=== PATIENT | female | born 1940 | race Two or more races ===

== ENCOUNTER 2018-10-04 09:13 | Day surgery (SDC) | payer OTHER ==
[2018-10-01 17:24] VITALS: BMI 26.5
[2018-10-04] VITALS (11 sets, daily range): BP systolic 106–169; BP diastolic 53–95; PULSE 73–122; RESP 10–24; Ht 144.8 cm; Wt 61.8 kg
[~2018-10-04] VITALS: Ht 144.8 cm; Wt 61.8 kg
[~2018-10-04 09:13] MED LIST: CEFAZOLIN 2 GM/50 ML (PMX) 50 ML IVPB ONE; SOD CHLORIDE 0.9% 1,000 ML IV SCH
[2018-10-04] MEDS ORDERED: SOD CHLORIDE 0.9% 1,000 ML IV ONE (10:00)
[2018-10-04] MEDS ORDERED: CEFAZOLIN 2 GM/50 ML (PMX) 50 ML IVPB ONE (10:00)
--- NOTE | 2018-10-04 10:30 | PREAC ---
Date/Time of Note Date/Time of Note DATE: 10/04/18 TIME: 10:29 Anesthesia Eval and Record Evaluation Time Pre-Procedure Interview DATE: 10/04/18 TIME: 10:29 Age 77 Sex female NPO: 8 hrs Preoperative diagnosis cholelithiasis Planned procedure laparoscopic cholecystectomy Past Medical History Past Medical History: Includes Cardio: Dyslipidemia Musculoskeletal: Osteoarthritis Surgery & Anesthesia Issues No known issue Meds Anticoagulation: No Beta Katharina within 24 hr: No Reason Beta Katharina not given: Pt. not on B-Katharina No Active Prescriptions or Reported Meds Current Medications Sodium Chloride 1,000 ml @ 75 mls/hr [id number] ONCE IV Last administered on 10/04/18at 10:11; Admin Dose 75 MLS/HR; Start 10/04/18 at 10:00; Stop 10/04/18 at 23:19 Meds reviewed: Yes Allergies Coded Allergies: No Known Drug Allergies (Unverified Allergy, Unknown, 10/04/18) Allergies Reviewed: Yes Labs/Studies Labs Reviewed: Reviewed by anesthesiologist test: N/A Pre-procedure Exam Last vitals Vital Signs Date Temp Pulse Resp B/P (MAP) Pulse Ox O2 O2 Flow FiO2 Time Delivery Rate 10/04/18 97.3 73 16 157/77 98 Room Air 10:04 (103) Airway: Adequate mouth opening, Adequate thyromental dist Mallampati: Mallampati I Teeth: Normal Lung: Normal Heart: Normal ASA Physical Status ASA physical status: 2 Emergency: None Planned Anesthetic General/MAC: ETT Planned Pain Management Parenteral pain med Pre-operative Attestations Prior to commencing anesthesia and surgery, the patient was re-evaluated, there was verification of: *The patient's identity *The results of appropriate recent lab work and preoperative vital signs *The above evaluation not changing prior to induction *Anesthetic plan, risk benefits, alternative and complications discussed with patient/family; questions answered; patient/family understands, accepts and wishes to proceed. TORSTEN KELLER Oct 04, 2018 10:30
[2018-10-04] MEDS ORDERED: BUPIVACAINE 0.25% (MPF) 30 ML INJ ONE (10:35)
[2018-10-04] MEDS ORDERED: ROCURONIUM 50 MG INJ ONE (10:38)
[2018-10-04] MEDS ORDERED: PROPOFOL 20 ML ONE (10:38)
[2018-10-04] MEDS ORDERED: LIDOCAINE 2% (SDV) 5 ML INJ ONE (10:39)
[2018-10-04] MEDS ORDERED: FENTAnyl 50 MCG/ML VIAL ONE (10:39)
[2018-10-04] MEDS ORDERED: CEFAZOLIN 1 GM INJ ONE (10:51)
[2018-10-04] MEDS ORDERED: ONDANSETRON 4 MG INJ ONE (10:52)
[2018-10-04] MEDS ORDERED: DEXAMETHASONE 4 MG/ML 5 ML INJ ONE (10:52)
[2018-10-04] MEDS ORDERED: ATROPINE 1 MG/10 ML SYRINGE ONE (11:17)
[2018-10-04] MEDS ORDERED: SUGAMMADEX SODIUM 200 MG/2 ML VIAL IV ONE (11:17)
--- NOTE | 2018-10-04 11:23 | OPR ---
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 She requests surgical excision of her gallbladder. Risks alternatives benefits and personally discussed the patient. Patient expressed understanding and consents to the operation. Procedure Description Patient is taken to the OR prepped and draped in usual sterile fashion. Surgical time was performed. IV antibiotics given. Infraumbilical transverse incision was made at the 15 blade. Dissection with cautery skin onto the fascia and the fascia was grasped with [place]'s and divided with curved Carreon scissors. Overdiuresis is placed into the fascia. Gray trochars were introduced. Pneumoperitoneum is established. Midepigastric 12 mm optical trochars placed under direct position. Right upper quadrant upper flank 5 mm optical trochars w ere placed under direct position. Upon initial inspection there are some adhesions of the gallbladder extending down bluntly. The gallbladder was grasped in the fundus retracted lateral cephalad direction. [place] graspers were used to dissect of the cystic duct and cystic artery. The critical view was established. The cystic duct is divided to close proximal to distal and the divisions performed laparoscopic scissors. The cystic artery was divided to close proximal completion of the divisions performed laparoscopic scissors. The gallbladder was taken of the gallbladder bed. Good hemostasis after the gallbladder is retrieved Endo Catch bag. All ports removed under direct position. Overdiuresis was tied down. Skin is closed and skin annika. Ther apeutic contains local anesthesia was injected at the incision site. Dry dressings were applied. Ivy TURK Oct 04, 2018 11:23
[2018-10-04] MEDS ORDERED: HYDROCODONE/APAP (5/325) TAB PO ONE (11:30)
--- NOTE | 2018-10-04 11:34 | PAC ---
Date/Time of Note Date/Time of Note DATE: 10/04/18 TIME: 11:34 Post-Anesthesia Notes Post-Anesthesia Note Last documented vital signs Vital Signs Date Temp Pulse Resp B/P (MAP) Pulse Ox O2 O2 Flow FiO2 Time Delivery Rate 10/04/18 97.3 73 16 157/77 98 Room Air 1134 (103) Activity: WNL Respiratory function: WNL Cardiovascular function: WNL Mental status: Baseline Pain reasonably controlled: Yes Hydration appropriate: Yes Nausea/Vomiting absent: Yes TORSTEN KELLER Oct 04, 2018 11:34
[2018-10-04] MEDS: FENTAnyl 50 MCG/ML VIAL IV PRN ×2 (11:44→11:54)
[2018-10-04] MEDS ORDERED: hydrALAzine 20 MG INJ IV PRN (12:00)
[2018-10-04] MEDS ORDERED: ONDANSETRON 4 MG INJ IV PRN (12:00)
[2018-10-04] MEDS ORDERED: MEPERIDINE 25 MG INJ IV PRN (12:00)
[2018-10-04] MEDS ORDERED: MIDAZOLAM 1 MG/ML 2 ML INJ IV PRN (12:00)
[2018-10-04] MEDS ORDERED: EPHEDrine SULFATE 50 MG/5 ML SYG IV PRN (12:00)
[2018-10-04] MEDS ORDERED: HYDROmorphONE 1 MG/5 ML IV SYRINGE IV PRN ×3 (12:00)
[2018-10-04] MEDS ORDERED: KETOROLAC 30 MG INJ IV PRN (12:00)
[2018-10-04] MEDS ORDERED: FENTAnyl 50 MCG/ML VIAL IV PRN ×2 (12:00)
[2018-10-04] MEDS ORDERED: LABETALOL HCL 20MG INJ IV PRN (12:00)
[2018-10-04] MEDS ORDERED: DIPHENHYDRAMINE 50 MG INJ IV PRN (12:00)
[2018-10-04] MEDS ORDERED: OXYCODONE/ACETAMINOPHEN (5/325) TAB PO PRN ×2 (12:00)
[2018-10-04] MEDS ORDERED: ALBUTEROL 0.083% (NEB) 2.5 MG/3 ML AMP HHN PRN (12:00)
== END 2018-10-04 13:30 | disposition home or self-care (01) ==
LOC: SDS 09:13
PROVIDERS: ATTEND Surgery
DX: K80.10 Calculus of gallbladder with chronic cholecystitis without obstruction (principal); E78.5 Hyperlipidemia, unspecified
CPT/HCPCS: 47562; J0461; J0690; J1100; J1885; J2405; J3010; Z7512; Z7610; 88304